=== PATIENT | male | born 1995 | race Hispanic/Latino ===

== ENCOUNTER 2018-04-07 00:39 | Emergency (ER) | payer OTHER ==
[2018-04-07] MEDS ORDERED: Midazolam 2 MG/2 ML VIAL IV STA (01:12)
[2018-04-07] MEDS ORDERED: Midazolam 2 MG/2 ML VIAL ONE ×3 (01:18→01:41)
[2018-04-07] MEDS ORDERED: Sodium Chloride 0.9% 1,000 ML ONE (01:19)
[2018-04-07] MEDS: Sodium Chloride 0.9% 1,000 ML IV ONE ×2 (01:20→02:06)
[2018-04-07] MEDS ORDERED: Midazolam 2 MG/2 ML VIAL IVP ONE (01:33)
[2018-04-07] MEDS ORDERED: Midazolam 5 MG/5 ML VIAL IVP STA (01:39)
[2018-04-07] MEDS ORDERED: Propofol 10 mg/ml Inj (20 ML) ONE ×2 (01:51→02:33)
[2018-04-07] MEDS ORDERED: Sodium Chloride 0.9% 1,000 ML IV ONE (02:00)
[2018-04-07] MEDS ORDERED: Propofol 10 mg/ml Inj (100 ml) IV SCH ×2 (02:00→02:30)
--- NOTE | 2018-04-07 02:36 | C.PDOC ---
History Of Present Illness 22 year old male presents to the ED c/o right shoulder pain. Patient states that while moving his arm abruptly he felt it go out of place. Patient states this has happened in the past with previous dislocations. Patient denies trauma , injury, fall, weakness, numbness. Chief Complaint (Nursing): Upper Extremity Problem/Injury History Per: Patient History/Exam Limitations: no limitations Onset/Duration Of Symptoms: Hrs Current Symptoms Are (Timing): Still Present Quality: "Pain" Exacerbating Factor(s): Strenuous Use Of Affected Area, Movement Recent travel outside of the [facility]: No Additional History Per: Patient Past Medical History Reviewed: Historical Data, Nursing Documentation, Vital Signs Vital Signs: Last Vital Signs Temp 98.5 F 04/07/18 03:56 Pulse 62 04/07/18 04:15 Resp 16 04/07/18 04:15 BP 106/55 L 04/07/18 04:15 Pulse Ox 100 04/07/18 05:10 - Medical History PMH: No Chronic Diseases Surgical History: No Surg Hx Family History: States: Unknown Family Hx - Social History Hx Alcohol Use: No Hx Substance Use: No - Immunization History Hx Tetanus Toxoid Vaccination: No Hx Influenza Vaccination: No Hx Pneumococcal Vaccination: No Review Of Systems Constitutional: Negative for: Fever, Chills Cardiovascular: Negative for: Chest Pain, Palpitations Respiratory: Negative for: Cough, Shortness of Breath Gastrointestinal: Negative for: Nausea, Vomiting Musculoskeletal: Positive for: Shoulder Pain Skin: Negative for: Rash Neurological: Negative for: Weakness, Numbness Physical Exam - Physical Exam Appears: Non-toxic, In Acute Distress (to pain), Other (holding right arm) Skin: Normal Color, Warm, Dry Head: Atraumatic, Normacephalic Eye(s): bilateral: Normal Inspection Oral Mucosa: Moist Neck: Normal ROM, Supple Chest: Symmetrical Cardiovascular: Rhythm Regular Respiratory: Normal Breath Sounds, No Rales, No Rhonchi, No Wheezing Extremity: No Normal ROM (limited right shoulder), Tenderness (right shoulder), Capillary Refill (< 2 seconds), No Swelling Pulses: Left Brachial: Normal, Right Brachial: Normal, Left Radial: Normal, Right Radial: Normal Neurological/Psych: Oriented x3, Normal Speech, Normal Sensation Gait: Steady ED Course And Treatment O2 Sat by Pulse Oximetry: 100 (ON RA) Pulse Ox Interpretation: Normal Medical Decision Making Medical Decision Making: Post reduction films show right shoulder is back in place Disposition Doctor Will See Patient In The: Office Counseled Patient/Family Regarding: Diagnosis - Disposition Referrals: [facility] [Outside] Non [facility] Provider, [Primary Care Provider] - Javi Gil III, MD [Staff Provider] - Disposition: HOME/ ROUTINE Disposition Time: 06:30 Condition: IMPROVED Instructions: Shoulder Dislocation (DC) Forms: [facility] [facility] (Yoruba) - POA Present On Arrival: None - Clinical Impression Clinical Impression: Dislocation of right shoulder joint - Scribe Statement The provider has reviewed the documentation as recorded by the Scribe Janusz Hartley All medical record entries made by the Scribe were at my direction and personally dictated by me. I have reviewed the chart and agree that the record accurately reflects my personal performance of the history, physical exam, medical decision making, and the department course for this patient. I have also personally directed, reviewed, and agree with the discharge instructions and disposition. Proc Sedation INTRA-PROCEDURE - Medications Medications Given: Propofol (Diprivan) 100 mg IV TITR AMY Propofol (Diprivan) 100 mg IV TITR AMY Discontinued Medications Sodium Chloride (Sodium Chloride 0.9%) 1,000 mls @ 100 mls/hr IV .Q10H ONE Stop: 04/07/18 11:10 Last Admin: 04/07/18 02:06 Dose: 100 mls/hr eMAR Start Stop Document 04/07/18 02:06 AB (Rec: 04/07/18 02:06 [id number]) Intravenous Solution Start Date 04/07/18 Start Time 02:06 Sodium Chloride (Sodium Chloride 0.9%) 1,000 mls @ 1,000 mls/hr IV .Q1H ONE Stop: 04/07/18 02:59 Last Admin: 04/07/18 02:06 Dose: 1,000 mls/hr eMAR Start Stop Document 04/07/18 02:06 AB (Rec: 04/07/18 02:05 AB [id number]) Intravenous Solution Start Date 04/07/18 Start Time 01:05 End Date 04/07/18 End time 02:05 Total Infusion Time 60 Midazolam HCl (Versed Inj) 2 mg IV STAT STA Stop: 04/07/18 01:13 Last Admin: 04/07/18 01:32 Dose: 2 mg eMAR Start Stop Document 04/07/18 01:32 AB (Rec: 04/07/18 01:32 AB [id number]) Intravenous Solution Start Date 04/07/18 Start Time 01:20 End Date 04/07/18 End time 01:21 Total Infusion Time 1 Midazolam HCl (Versed Inj) 2 mg IVP ONCE ONE Stop: 04/07/18 01:34 Last Admin: 04/07/18 01:31 Dose: 2 mg IVP Administration Document 04/07/18 01:31 AB (Rec: 04/07/18 01:34 AB [id number]) Charges for Administration # of IVP Administrations 1 Midazolam HCl (Versed Inj) 2 mg IVP STAT STA Stop: 04/07/18 01:40 Last Admin: 04/07/18 01:40 Dose: 2 mg IVP Administration Document 04/07/18 01:40 AB (Rec: 04/07/18 01:40 AB [id number]) Charges for Administration # of IVP Administrations 1 Morphine Sulfate (Morphine) 2 mg IVP STAT STA Stop: 04/07/18 01:13 Last Admin: 04/07/18 01:20 Dose: 2 mg MAR Pain Assessment Document 04/07/18 01:20 AB (Rec: 04/07/18 01:32 AB [id number]) Pain Reassessment Is this a pain reassessment? No IVP Administration Document 04/07/18 01:20 AB (Rec: 04/07/18 01:32 AB [id number]) Charges for Administration # of IVP Administrations 1 Morphine Sulfate (Morphine) 2 mg IVP STAT STA Stop: 04/07/18 01:33 Last Admin: 04/07/18 01:30 Dose: 2 mg MAR Pain Assessment Document 04/07/18 01:30 AB (Rec: 04/07/18 01:34 AB [id number]) Pain Reassessment Is this a pain reassessment? No IVP Administration Document 04/07/18 01:30 AB (Rec: 04/07/18 01:34 AB [id number]) Charges for Administration # of IVP Administrations 1 Morphine Sulfate (Morphine) 2 mg IVP STAT STA Stop: 04/07/18 01:42 Last Admin: 04/07/18 01:43 Dose: 2 mg MAR Pain Assessment Document 04/07/18 01:43 AB (Rec: 04/07/18 01:44 AB [id number]) Pain Reassessment Is this a pain reassessment? Yes Sleep Is patient sleeping during reassessment? No Presence of Pain Presence of Pain Yes Pain Scale Used Pain Scale Used Numeric Location Left, Right or Bilateral Right Upper or Lower Upper Pain Location Body Site Shoulder Description Description Sharp Intensity of Pain at present 8 Acceptable Level of Pain 0 Pain Behavior Moaning Restlessness Facial Grimacing Aggravating Factors Changing Position Alleviating Factors/Management Medication Techniques Alleviating Factors attempting reduction IVP Administration Document 04/07/18 01:43 AB (Rec: 04/07/18 01:44 [id number]) Charges for Administration # of IVP Administrations 1 Proc Sedation PRE-PROCEDURE - Pre-Anesthesia Chief Complaint: Upper Extremity Problem/Injury Past Medical History: Medications Reviewed, Allergies Reviewed, Record Review Previous Surgies: Reviewed Family History/Social History: Reviewed - Physical Exam/Review of Systems Vital Signs Reviewed: Yes Cardiovascular: Regular Rate and Rhythm, Normal S1, S2 Respiratory/Chest: Clear to Auscultation, Good Air Exchange Neurological: GCS=15, CN II-XII Intact, Speech Normal Abdomen: Normal Bowel Sounds. denies: Tenderness, Distention, Peritoneal Signs Mental Status: Alert and Oriented X 3 - Pre-Procedure Airway Assessment History of difficult intubation or surgical airway (i.e trach):: No Inability to extend neck:: No Mouth opening less than two finger breadth:: No Diagnosis of sleep apnea:: No Less than three finger breadth to hyoid bone:: No ASA Criteria: 1 - Healthy, normal. 2 - Mild systemic disease (No functional limitations, mildline obesity, DM withot complications, Hypertention). 3 - Severe systemic disease (Some functional limitation, stable angina, morbid obesity, controlled COPD/Asthma/CHF). 4 - Sever systemic disease constant threat to life (Unstable angina, active symptoms of COPD/Asthma, CHF/ Hypertension. 5 - Moribund Proc Sedation POST-PROCEDURE - Discharge Checklist Written MD order for Discharge: Yes Vital signs assessed and are consistent with pre-procedure reading: Yes Minimal nausea, vomiting, and dizziness: Yes Ambulates to pre-procedural level: Yes Alert and oriented to pre-procedural level: Yes Responsible adult escort present: Yes DISCHARGE INSTRUCTIONS GIVEN:: Yes
[2018-04-07 03:57] VITALS: TEMP 98.5
[2018-04-07 06:27] VITALS: BP 117/64; PULSE 96; RESP 20; O2SAT 97
--- NOTE | 2018-04-07 09:46 | RAD ---
Date of service: 04/07/2018 PROCEDURE: Radiographs of the Right Shoulder HISTORY: poss. dislocation COMPARISON: No prior. FINDINGS: BONES: An anterior inferior dislocation of the humeral head is seen relative to the glenoid process of the scapula. No fracture appears displaced. The currently joint appears normal. Local soft tissues are diffusely unremarkable. JOINTS: As above. SOFT TISSUES: Normal. OTHER FINDINGS: None. IMPRESSION: Anterior inferior dislocation of the humerus at the right shoulder. No acute fracture identified.
--- NOTE | 2018-04-07 09:47 | RAD ---
Date of service: 04/07/2018 PROCEDURE: Radiographs of the Right Shoulder HISTORY: post closed reduction of right shoulder COMPARISON: No prior. FINDINGS: BONES: Normal. No fracture. JOINTS: Postreduction images demonstrate adequate reduction of the humerus at the glenohumeral joint. No interval fracture. Acromioclavicular joint remains unremarkable as well as local soft tissues. SOFT TISSUES: As above. OTHER FINDINGS: None. IMPRESSION: Adequate reduction glenohumeral joint right shoulder. No acute fracture identified.
== END 2018-04-07 06:53 | disposition home or self-care (01) ==
LOC: SUPCPDRO 00:39 → C.ER 00:39
DX: S43.084A Other dislocation of right shoulder joint, initial encounter (principal); X58.XXXA Exposure to other specified factors, initial encounter
CPT/HCPCS: 23650; 73030; 94770; 96361; 96374; 96375; 96376; 99152; 99285; J2250; J2270; J7030